=== PATIENT | female | born 1950 | race Caucasian/White ===

== ENCOUNTER 2020-02-28 23:00 | Emergency (ER) | payer OTHER ==
[2020-02-28 23:35] LABS: BASOPHILS % (AUTO) 0.5 % (0.0-5.0); EOSINOPHILS % (AUTO) 0.4 % (0.0-8.0); LYMPHOCYTES % (AUTO) 18.4 % (21.0-51.0); MEAN CORPUSCULAR HEMOGLOBIN 29.8 pg (27.0-33.0); MEAN CORPUSCULAR HGB CONC 33.3 g/dL (32.0-36.0); MEAN CORPUSCULAR VOLUME 89.4 fL (79-99); NEUTROPHILS % (AUTO) 74.3 % (40.0-77.0); PLATELET COUNT (AUTO) 253 K/uL (130-400); RED CELL DISTRIBUTION WIDTH 12.2 % (11.0-15.5); WHITE BLOOD COUNT (AUTO) 10.9 K/uL (4.8-10.8)
[2020-02-28 23:51] LABS: CREATININE 1.1 mg/dL (0.5-1.5); POTASSIUM 3.7 mmol/L (3.5-5.1)
[2020-02-28 23:54] LABS: APPEARANCE,URINE Cloudy (CLEAR); BILIRUBIN,URINE Negative (NEGATIVE); COLOR,URINE Yellow (YELLOW); GLUCOSE, URINE (UA) Negative (NEGATIVE); KETONES,URINE Negative (NEGATIVE); LEUKOCYTE ESTERASE ,URINE Large (NEGATIVE); NITRATE,URINE Negative (NEGATIVE); OCCULT BLOOD,URINE Small (NEGATIVE); PH,URINE 5.5 (5.0-8.0); PROTEIN,URINE Negative (NEGATIVE); UROBILINOGEN,URINE 0.2 mg/dL (0.2-1.0)
[2020-02-28 23:55] LABS: ALBUMIN 3.8 g/dL (3.5-5.0); BILIRUBIN,TOTAL 0.4 mg/dL (0.2-1.0); TOTAL PROTEIN, SERUM 7.8 g/dL (6.0-8.3)
[2020-02-29 00:06] LABS: B-TYPE NATRIURETIC PEPTIDE 122 pg/mL (0-100)
[2020-02-29 00:16] LABS: WBC,URINE 51-100 /HPF (0-1)
[2020-02-29 00:17] LABS: BACTERIA,URINE Moderate /HPF (None Seen); SQUAMOUS EPITHELIAL CELL,UR Moderate /HPF (0-2)
[2020-02-29] MEDS ORDERED: CEPHALEXIN 500 MG CAPSULE ONE (02:44)
== END 2020-02-29 02:55 | disposition home or self-care (01) ==
LOC: EDH 23:00
DX: I10 Essential (primary) hypertension (principal); N39.0 Urinary tract infection, site not specified; E11.65 Type 2 diabetes mellitus with hyperglycemia; R00.2 Palpitations; Z90.49 Acquired absence of other specified parts of digestive tract; Z90.710 Acquired absence of both cervix and uterus; Z88.6 Allergy status to analgesic agent
CPT/HCPCS: 36415; 71045; 80053; 81001; 82550; 83880; 84484; 85025; 87077; 87088; 87186; 93005

== ENCOUNTER → 2021-06-01 | Outpatient (CLI) | payer OTHER | END | disposition home or self-care (01) | LOC: RAH 10:55 | PROVIDERS: ATTEND Family Medicine | DX: Z12.31 Encounter for screening mammogram for malignant neoplasm of breast (principal); Z00.01 Encounter for general adult medical examination with abnormal findings | CPT/HCPCS: 77067 ==

== ENCOUNTER 2022-02-14 20:40 | Emergency (ER) | payer OTHER ==
[~2022-02-14] VITALS: Ht 152.4 cm; Wt 102.1 kg
[2022-02-14 20:41] VITALS: BP 133/65
[2022-02-14] MEDS ORDERED: LIDOCAINE HCL 2% VISCOUS 15 ML UDCUP PO ONE (21:00)
[2022-02-14] MEDS ORDERED: FAMOTIDINE 20MG VIAL IV ONE (21:00)
[2022-02-14] MEDS ORDERED: DICYCLOMINE HCL 10 MG/5 ML ML PO ONE (21:00)
[2022-02-14] MEDS ORDERED: ONDANSETRON 4MG INJ IVP ONE (21:00)
[2022-02-14] MEDS ORDERED: MAG/ALUM/SIMETH 30 ML UDCUP PO ONE (21:00)
[2022-02-14 21:20] LABS: BASOPHILS % (AUTO) 0.3 % (0.0-5.0); EOSINOPHILS % (AUTO) 0.3 % (0.0-8.0); HEMATOCRIT 41.2 % (36-48); LYMPHOCYTES % (AUTO) 8.7 % (21.0-51.0); MEAN CORPUSCULAR HEMOGLOBIN 29.2 pg (27.0-33.0); MEAN CORPUSCULAR VOLUME 91.2 fL (79-99); MONOCYTES % (AUTO) 4.9 % (3.0-13.0); NEUTROPHILS % (AUTO) 85.6 % (40.0-77.0); PLATELET COUNT (AUTO) 234 K/uL (130-400); RED BLOOD CELL COUNT(AUTO) 4.52 MIL/uL (4.00-5.50); RED CELL DISTRIBUTION WIDTH 12.6 % (11.0-15.5); WHITE BLOOD COUNT (AUTO) 12.9 K/uL (4.8-10.8)
[2022-02-14] MEDS ORDERED: 0.9%NACL 1000ML 1,000 ML IV ONE (21:48)
[2022-02-14 21:51] LABS: ALBUMIN 3.4 g/dL (3.5-5.0); BILIRUBIN,TOTAL 0.3 mg/dL (0.2-1.0); TOTAL PROTEIN, SERUM 7.5 g/dL (6.0-8.3)
[2022-02-14 22:10] LABS: APPEARANCE,URINE Cloudy (CLEAR); BILIRUBIN,URINE Negative (NEGATIVE); COLOR,URINE Yellow (YELLOW); GLUCOSE, URINE (UA) Negative (NEGATIVE); KETONES,URINE Trace mg/dL (NEGATIVE); LEUKOCYTE ESTERASE ,URINE Large (NEGATIVE); NITRATE,URINE Positive (NEGATIVE); OCCULT BLOOD,URINE Small (NEGATIVE); PH,URINE 5.5 (5.0-8.0); PROTEIN,URINE Trace mg/dL (NEGATIVE); UROBILINOGEN,URINE 0.2 mg/dL (0.2-1.0)
[2022-02-14] MEDS ORDERED: PHEN-847 PO (22:24)
[2022-02-14] MEDS ORDERED: CEPH500B PO (22:24)
[2022-02-14] MEDS ORDERED: CEFTRIAXONE 1G VIAL IVP ONE (22:30)
[2022-02-14] MEDS ORDERED: PHENAZOPYRIDINE HCL 200 MG TABLET PO ONE (22:30)
[2022-02-14 22:43] LABS: BACTERIA,URINE Moderate /HPF (None Seen); WBC,URINE 26-50 /HPF (0-1)
== END 2022-02-14 23:12 | disposition home or self-care (01) ==
LOC: EDH 20:40
DX: N39.0 Urinary tract infection, site not specified (principal); E11.9 Type 2 diabetes mellitus without complications; E66.9 Obesity, unspecified; Z68.41 Body mass index [BMI] 40.0-44.9, adult; I10 Essential (primary) hypertension; Z88.5 Allergy status to narcotic agent; Z79.899 Other long term (current) drug therapy; Z90.49 Acquired absence of other specified parts of digestive tract; Z98.890 Other specified postprocedural states
CPT/HCPCS: 36415; 71045; 80053; 81001; 83690; 84484; 85025; 87077; 87088; 87186; 96361; 96374; 96375; 99284; J0696; J2405; J3490; J7030

== ENCOUNTER 2022-02-16 02:56 | Inpatient (IN) | payer MEDICARE ==
[~2022-02-16] VITALS: Ht 152.4 cm; Wt 103.5 kg
[~2022-02-16 02:56] MED LIST: CEPH500B PO; PHEN-847 PO
[2022-02-16] MEDS ORDERED: ONDANSETRON 4MG INJ ONE (03:54)
[2022-02-16] MEDS ORDERED: ONDANSETRON 4MG INJ IVP ONE (04:00)
[2022-02-16] MEDS ORDERED: 0.9%NACL 1000ML 1,000 ML IV ONE ×2 (04:00→05:30)
[2022-02-16 04:18] LABS: BASOPHILS % (AUTO) 0.4 % (0.0-5.0); EOSINOPHILS % (AUTO) 0.1 % (0.0-8.0); HEMATOCRIT 44.3 % (36-48); LYMPHOCYTES % (AUTO) 10.9 % (21.0-51.0); MEAN CORPUSCULAR HEMOGLOBIN 29.8 pg (27.0-33.0); MEAN CORPUSCULAR HGB CONC 32.3 g/dL (32.0-36.0); MEAN CORPUSCULAR VOLUME 92.3 fL (79-99); MONOCYTES % (AUTO) 3.6 % (3.0-13.0); NEUTROPHILS % (AUTO) 84.6 % (40.0-77.0); PLATELET COUNT (AUTO) 285 K/uL (130-400); RED CELL DISTRIBUTION WIDTH 12.7 % (11.0-15.5); WHITE BLOOD COUNT (AUTO) 13.5 K/uL (4.8-10.8)
[2022-02-16 04:19] LABS: POTASSIUM 4.4 mmol/L (3.5-5.1)
[2022-02-16 04:22] LABS: BILIRUBIN,URINE Small (NEGATIVE); COLOR,URINE Orange (YELLOW); GLUCOSE, URINE (UA) Negative (NEGATIVE); KETONES,URINE >=80 mg/dL (NEGATIVE); LEUKOCYTE ESTERASE ,URINE Moderate (NEGATIVE); NITRATE,URINE Positive (NEGATIVE); OCCULT BLOOD,URINE Small (NEGATIVE); PROTEIN,URINE POS 2+ mg/dL (NEGATIVE)
[2022-02-16 04:23] LABS: ALBUMIN 3.4 g/dL (3.5-5.0); BILIRUBIN,TOTAL 0.6 mg/dL (0.2-1.0); TOTAL PROTEIN, SERUM 7.6 g/dL (6.0-8.3)
[2022-02-16 04:30] LABS: APPEARANCE,URINE SLIGHTLY CLOUDY (CLEAR)
[2022-02-16] MEDS ORDERED: CEFTRIAXONE 1G VIAL IVP ONE (05:00)
[2022-02-16 05:11] LABS: BACTERIA,URINE Few /HPF (None Seen); WBC,URINE 51-100 /HPF (0-1)
[2022-02-16 05:12] LABS: MUCUS,URINE Few LPF (None Seen)
[2022-02-16] MEDS ORDERED: ACETAMINOPHEN 500 MG TABLET PO PRN (08:00)
[2022-02-16] MEDS: INSULIN HUMULIN R 100 UNIT/ML 3ML SQ SCH ×3 (08:00→20:00)
[2022-02-16] MEDS ORDERED: MORPHINE 2 MG SYG IVP PRN (08:00)
[2022-02-16] MEDS ORDERED: ONDANSETRON 4MG INJ IVP PRN (08:00)
[2022-02-16] MEDS ORDERED: THIAMINE HCL 100 MG/ML 2ML VIAL IVP SCH (08:00)
[2022-02-16] MEDS ORDERED: AMLO2.5T4 PO (08:09)
[2022-02-16] MEDS ORDERED: METO-409 PO (08:09)
[2022-02-16] MEDS ORDERED: LISI30TA4 PO (08:09)
[2022-02-16] MEDS: LACTATED RINGERS 1000ML 1,000 ML IV SCH ×2 (08:43→21:24)
[2022-02-16] MEDS: ZOSYN 3.375GM +NS 50ML IV SCH ×3 (08:43→23:54)
[2022-02-16] MEDS: PANTOPRAZOLE 40 MG/VIAL IVP SCH (08:43)
[2022-02-16 09:56] LABS: HEMOGLOBIN A1C 7.3 % (4.0-6.0)
[2022-02-16 10:09] LABS: CRP QUANTITATIVE 6.1 mg/L (0.00-9.0); THYROID STIMULATING HORMONE 0.31 uIU/mL (0.36-3.74)
[2022-02-16] MEDS: AMLODIPINE 2.5 MG TAB PO SCH ×2 (10:15→21:24)
[2022-02-16] MEDS ORDERED: METF-890 PO (14:09)
[2022-02-16 15:00] VITALS: BP 127/68
[2022-02-16] MEDS ORDERED: 0.9%NACL 50ML 50 ML IV ONE ×2 (15:09→23:50)
[2022-02-16] MEDS ORDERED: LISINOPRIL 10 MG TABLET PO SCH (15:30)
[2022-02-16 19:15] VITALS: BP 145/66
[2022-02-16] MEDS: METOPROLOL SUCCINATE 50 MG TAB.SR.24H PO SCH (20:24)
[2022-02-16] MEDS: ENOXAPARIN SODIUM 40 MG/0.4 ML SYRINGE SQ SCH (20:26)
[2022-02-17 00:06] VITALS: BP 146/64
[2022-02-17] MEDS: INSULIN HUMULIN R 100 UNIT/ML 3ML SQ SCH ×5 (02:00→20:25)
[2022-02-17 03:15] VITALS: BP 148/65
[2022-02-17 06:14] LABS: BASOPHILS % (AUTO) 0.7 % (0.0-5.0); EOSINOPHILS % (AUTO) 0.9 % (0.0-8.0); LYMPHOCYTES % (AUTO) 26.6 % (21.0-51.0); MEAN CORPUSCULAR HEMOGLOBIN 28.9 pg (27.0-33.0); MEAN CORPUSCULAR HGB CONC 30.8 g/dL (32.0-36.0); MEAN CORPUSCULAR VOLUME 93.7 fL (79-99); MONOCYTES % (AUTO) 7.1 % (3.0-13.0); NEUTROPHILS % (AUTO) 64.2 % (40.0-77.0); PLATELET COUNT (AUTO) 208 K/uL (130-400); RED BLOOD CELL COUNT(AUTO) 3.95 MIL/uL (4.00-5.50); RED CELL DISTRIBUTION WIDTH 12.5 % (11.0-15.5); WHITE BLOOD COUNT (AUTO) 8.8 K/uL (4.8-10.8)
[2022-02-17 06:39] LABS: ALANINE AMINOTRANSFERASE 17 U/L (12-78); ALBUMIN 2.7 g/dL (3.5-5.0); ASPARTATE AMINOTRANSFERASE 22 U/L (10-37); BILIRUBIN,TOTAL 0.5 mg/dL (0.2-1.0); CARBON DIOXIDE 28 mmol/L (21-32); CHLORIDE 104 mmol/L (101-111); CREATININE 0.9 mg/dL (0.5-1.5); GLOMERULAR FILTR. RATE CALC 65 mL/min (>60); GLUCOSE,RANDOM 114 mg/dL (70-105); POTASSIUM 3.7 mmol/L (3.5-5.1); SODIUM SERUM 140 mmol/L (136-145); TOTAL PROTEIN, SERUM 6.3 g/dL (6.0-8.3); UREA NITROGEN, BLOOD 14 mg/dL (7-18)
[2022-02-17 06:46] LABS: CRP QUANTITATIVE < 2.00 mg/L (0.00-9.0)
[2022-02-17 08:00] VITALS: BP 152/61
[2022-02-17] MEDS: ZOSYN 3.375GM +NS 50ML IV SCH ×2 (10:27→16:48)
[2022-02-17] MEDS: PANTOPRAZOLE 40 MG/VIAL IVP SCH (10:27)
[2022-02-17] MEDS: AMLODIPINE 2.5 MG TAB PO SCH ×2 (10:28→21:22)
[2022-02-17] MEDS: ENOXAPARIN SODIUM 40 MG/0.4 ML SYRINGE SQ SCH (10:28)
[2022-02-17] MEDS: LISINOPRIL 10 MG TABLET PO SCH (10:28)
[2022-02-17] MEDS: LACTATED RINGERS 1000ML 1,000 ML IV SCH (10:40)
[2022-02-17 12:49] VITALS: BP 136/68
[2022-02-17 16:30] VITALS: BP 142/66
[2022-02-17 19:06] VITALS: BP 154/65
[2022-02-17] MEDS: METOPROLOL SUCCINATE 50 MG TAB.SR.24H PO SCH (20:21)
[2022-02-17] MEDS ORDERED: 0.9%NACL 50ML 50 ML IV ONE (23:58)
[2022-02-18 00:06] VITALS: BP 145/73
[2022-02-18] MEDS: LACTATED RINGERS 1000ML 1,000 ML IV SCH (00:16)
[2022-02-18] MEDS: ZOSYN 3.375GM +NS 50ML IV SCH ×2 (00:16→09:16)
[2022-02-18 03:09] VITALS: BP 147/70
[2022-02-18 04:26] LABS: BASOPHILS % (AUTO) 0.6 % (0.0-5.0); EOSINOPHILS % (AUTO) 1.7 % (0.0-8.0); HEMATOCRIT 36.4 % (36-48); LYMPHOCYTES % (AUTO) 28.2 % (21.0-51.0); MEAN CORPUSCULAR HEMOGLOBIN 29.3 pg (27.0-33.0); MEAN CORPUSCULAR HGB CONC 31.6 g/dL (32.0-36.0); MEAN CORPUSCULAR VOLUME 92.6 fL (79-99); MONOCYTES % (AUTO) 8.2 % (3.0-13.0); NEUTROPHILS % (AUTO) 60.9 % (40.0-77.0); PLATELET COUNT (AUTO) 193 K/uL (130-400); RED BLOOD CELL COUNT(AUTO) 3.93 MIL/uL (4.00-5.50); RED CELL DISTRIBUTION WIDTH 12.3 % (11.0-15.5); WHITE BLOOD COUNT (AUTO) 7.1 K/uL (4.8-10.8)
[2022-02-18 04:45] LABS: ALBUMIN 2.8 g/dL (3.5-5.0); BILIRUBIN,TOTAL 0.5 mg/dL (0.2-1.0); CREATININE 0.9 mg/dL (0.5-1.5); POTASSIUM 3.5 mmol/L (3.5-5.1); TOTAL PROTEIN, SERUM 6.4 g/dL (6.0-8.3)
[2022-02-18] MEDS: INSULIN HUMULIN R 100 UNIT/ML 3ML SQ SCH ×2 (06:33→11:03)
[2022-02-18 07:00] VITALS: BP 179/76
[2022-02-18] MEDS ORDERED: CEFU500T67 PO (09:11)
[2022-02-18] MEDS: PANTOPRAZOLE 40 MG/VIAL IVP SCH (09:16)
[2022-02-18] MEDS: LISINOPRIL 10 MG TABLET PO SCH (09:17)
[2022-02-18] MEDS: AMLODIPINE 2.5 MG TAB PO SCH (09:17)
[2022-02-18] MEDS: ENOXAPARIN SODIUM 40 MG/0.4 ML SYRINGE SQ SCH (09:17)
[2022-02-18 11:00] VITALS: BP 154/78
== END 2022-02-18 13:50 | disposition home or self-care (01) | DRG 690 ==
LOC: EDH 02:56 → EDHIP 07:54 → 2AH 14:36
PROVIDERS: ADMIT Internal Medicine; ATTEND Internal Medicine
DX: N39.0 Urinary tract infection, site not specified (principal); K57.92 Diverticulitis of intestine, part unspecified, without perforation or abscess without bleeding; Z68.41 Body mass index [BMI] 40.0-44.9, adult; E86.1 Hypovolemia; N20.0 Calculus of kidney; E86.0 Dehydration; I10 Essential (primary) hypertension; E11.9 Type 2 diabetes mellitus without complications; D72.828 Other elevated white blood cell count; E66.9 Obesity, unspecified; Z20.822 Contact with and (suspected) exposure to COVID-19; Z90.49 Acquired absence of other specified parts of digestive tract; Z96.643 Presence of artificial hip joint, bilateral; R54 Age-related physical debility; M19.90 Unspecified osteoarthritis, unspecified site; Z88.8 Allergy status to other drugs, medicaments and biological substances
CPT/HCPCS: 36415; 74176; 80053; 81001; 82948; 83036; 83605; 83690; 83735; 84145; 84439; 84443; 84481; 85025; 85651; 86140; 87040; 87088; 87635; 87804; 93005; C9113; G0378; J0696; J1650; J2405; J2543; J3411; J7120

== ENCOUNTER → 2022-08-30 | Outpatient (CLI) | payer OTHER, MEDICARE ==
[~2022-08-30] MED LIST changes: +AMLO2.5T4 PO; +CEFU500T67 PO; -CEPH500B PO; +LISI30TA4 PO; +METF-890 PO; +METO-409 PO
== END | disposition home or self-care (01) ==
LOC: RAH 08:57
PROVIDERS: ATTEND Podiatrist
DX: S90.32XA Contusion of left foot, initial encounter (principal); X58.XXXA Exposure to other specified factors, initial encounter; Y93.89 Activity, other specified; Y92.89 Other specified places as the place of occurrence of the external cause; Y99.8 Other external cause status
CPT/HCPCS: 73630

== ENCOUNTER → 2022-09-16 | Outpatient (CLI) | payer OTHER, MEDICARE | END | disposition home or self-care (01) | LOC: RAH 09:13 | PROVIDERS: ATTEND Family Medicine | DX: Z12.31 Encounter for screening mammogram for malignant neoplasm of breast (principal) | CPT/HCPCS: 77067 ==

== ENCOUNTER 2023-02-25 17:07 | Emergency (ER) | payer OTHER, MEDICARE ==
[~2023-02-25] VITALS: Ht 152.4 cm; Wt 97.5 kg
[2023-02-25 18:21] LABS: BASOPHILS % (AUTO) 0.3 % (0.0-5.0); EOSINOPHILS % (AUTO) 0.5 % (0.0-8.0); HEMATOCRIT 40.5 % (36-48); LYMPHOCYTES % (AUTO) 16.7 % (21.0-51.0); MEAN CORPUSCULAR HEMOGLOBIN 29.3 pg (27.0-33.0); MEAN CORPUSCULAR HGB CONC 32.6 g/dL (32.0-36.0); MONOCYTES % (AUTO) 6.8 % (3.0-13.0); NEUTROPHILS % (AUTO) 75.3 % (40.0-77.0); PLATELET COUNT (AUTO) 237 K/uL (130-400); RED CELL DISTRIBUTION WIDTH 12.2 % (11.0-15.5); WHITE BLOOD COUNT (AUTO) 12.1 K/uL (4.8-10.8)
[2023-02-25 18:38] LABS: ALBUMIN 3.7 g/dL (3.5-5.0); TOTAL PROTEIN, SERUM 7.6 g/dL (6.0-8.3)
[2023-02-25 18:38] LABS: APPEARANCE,URINE CLEAR (CLEAR); BILIRUBIN,URINE NEGATIVE (NEGATIVE); COLOR,URINE COLORLESS (YELLOW); GLUCOSE, URINE (UA) NEGATIVE (NEGATIVE); KETONES,URINE NEGATIVE (NEGATIVE); LEUKOCYTE ESTERASE ,URINE 250 Leu/uL (NEGATIVE); NITRATE,URINE NEGATIVE (NEGATIVE); OCCULT BLOOD,URINE NEGATIVE (NEGATIVE); PH,URINE 5.5 (5.0-8.0); PROTEIN,URINE NEGATIVE (NEGATIVE); UROBILINOGEN,URINE 0.2 mg/dL (0.2-1.0)
[2023-02-25 18:55] LABS: BACTERIA,URINE FEW /HPF (None Seen); RBC,URINE 0-1 /HPF (0-1); SQUAMOUS EPITHELIAL CELL,UR RARE /HPF (0-2)
[2023-02-25 19:20] VITALS: BP 145/64
[2023-02-25] MEDS ORDERED: ONDA4TAB10 PO (19:23)
[2023-02-25] MEDS ORDERED: CEFD300C3 PO (19:23)
[2023-02-25] MEDS ORDERED: CEFTRIAXONE 1G VIAL IVPB ONE (19:30)
== END 2023-02-25 19:58 | disposition home or self-care (01) ==
LOC: EDH 17:07
DX: N39.0 Urinary tract infection, site not specified (principal); I10 Essential (primary) hypertension; E11.9 Type 2 diabetes mellitus without complications; E66.9 Obesity, unspecified; Z79.84 Long term (current) use of oral hypoglycemic drugs; Z79.899 Other long term (current) drug therapy; Z90.49 Acquired absence of other specified parts of digestive tract; Z98.890 Other specified postprocedural states; Z88.5 Allergy status to narcotic agent
CPT/HCPCS: 99284; 96374; 80053; 85025; 87088; 81001; 36415; J0696

== ENCOUNTER 2023-05-07 13:36 | Emergency (ER) | payer OTHER, MEDICARE ==
[~2023-05-07] VITALS: Ht 152.4 cm; Wt 99.8 kg
[~2023-05-07 13:36] MED LIST changes: +CEFD300C3 PO; +ONDA4TAB10 PO
[2023-05-07 13:57] LABS: BASOPHILS % (AUTO) 0.4 % (0.0-5.0); EOSINOPHILS % (AUTO) 0.4 % (0.0-8.0); HEMATOCRIT 43.9 % (36-48); LYMPHOCYTES % (AUTO) 22.2 % (21.0-51.0); MEAN CORPUSCULAR HEMOGLOBIN 29.9 pg (27.0-33.0); MEAN CORPUSCULAR HGB CONC 32.6 g/dL (32.0-36.0); MEAN CORPUSCULAR VOLUME 91.8 fL (79-99); MONOCYTES % (AUTO) 5.9 % (3.0-13.0); NEUTROPHILS % (AUTO) 70.8 % (40.0-77.0); PLATELET COUNT (AUTO) 259 K/uL (130-400); RED BLOOD CELL COUNT(AUTO) 4.78 MIL/uL (4.00-5.50); RED CELL DISTRIBUTION WIDTH 12.6 % (11.0-15.5); WHITE BLOOD COUNT (AUTO) 10.4 K/uL (4.8-10.8)
[2023-05-07 13:57] LABS: APPEARANCE,URINE CLEAR (CLEAR); BILIRUBIN,URINE NEGATIVE (NEGATIVE); COLOR,URINE COLORLESS (YELLOW); GLUCOSE, URINE (UA) NEGATIVE (NEGATIVE); KETONES,URINE NEGATIVE (NEGATIVE); LEUKOCYTE ESTERASE ,URINE 250 Leu/uL (NEGATIVE); NITRATE,URINE NEGATIVE (NEGATIVE); OCCULT BLOOD,URINE NEGATIVE (NEGATIVE); PH,URINE 5.5 (5.0-8.0); PROTEIN,URINE NEGATIVE (NEGATIVE); UROBILINOGEN,URINE 0.2 mg/dL (0.2-1.0)
[2023-05-07] MEDS ORDERED: ONDANSETRON 4MG INJ IVP ONE (14:00)
[2023-05-07 14:06] LABS: CREATININE 1.1 mg/dL (0.5-1.5); POTASSIUM 4.6 mmol/L (3.5-5.1)
[2023-05-07 14:11] LABS: ALBUMIN 3.7 g/dL (3.5-5.0); TOTAL PROTEIN, SERUM 7.9 g/dL (6.0-8.3)
[2023-05-07 14:35] LABS: BACTERIA,URINE RARE /HPF (None Seen); MUCUS,URINE RARE LPF (None Seen); RBC,URINE 0-1 /HPF (0-1); SQUAMOUS EPITHELIAL CELL,UR RARE /HPF (0-2)
[2023-05-07] MEDS ORDERED: 0.9% NACL 500ML IV.SOLN 500 ML IV ONE (15:00)
[2023-05-07] MEDS ORDERED: CEFTRIAXONE 1G VIAL IVPB ONE (15:00)
[2023-05-07] MEDS ORDERED: KETOROLAC 15MG/ML VIAL (15MG/ML) IV ONE (15:00)
[2023-05-07 15:24] VITALS: BP 144/64; PULSE 72; RESP 16; O2SAT 98
[2023-05-07] MEDS ORDERED: NITR100C PO (16:40)
[2023-05-07] MEDS ORDERED: ONDA4TAB10 PO (16:40)
== END 2023-05-07 17:08 | disposition home or self-care (01) ==
LOC: EDH 13:36
DX: N39.0 Urinary tract infection, site not specified (principal); N20.0 Calculus of kidney; E11.9 Type 2 diabetes mellitus without complications; E78.00 Pure hypercholesterolemia, unspecified; I10 Essential (primary) hypertension; Z79.899 Other long term (current) drug therapy; Z88.5 Allergy status to narcotic agent; Z90.49 Acquired absence of other specified parts of digestive tract
CPT/HCPCS: 99285; 74176; 96365; 96375; 96366; 80053; 85025; 87088; 83605; 81001; 36415; J7040; J0696; J2405; J1885

== ENCOUNTER 2023-08-08 07:30 | Day surgery (SDC) | payer OTHER, MEDICARE ==
[2023-08-06 12:42] LABS: BASOPHILS # (AUTO) 0.05 K/uL (0.00-0.20); BASOPHILS % (AUTO) 0.5 % (0.0-5.0); EOSINOPHILS # (AUTO) 0.14 K/uL (0.00-0.70); EOSINOPHILS % (AUTO) 1.5 % (0.0-8.0); HEMATOCRIT 42.2 % (36-48); IMMATURE GRANULOCYTE ABSOLUTE 0.03 K/uL (0-1); MEAN CORPUSCULAR HEMOGLOBIN 30.4 pg (27.0-33.0); MEAN CORPUSCULAR HGB CONC 32.7 g/dL (32.0-36.0); MONOCYTES # (AUTO) 0.7 K/uL (0.1-1.0); MONOCYTES % (AUTO) 7.4 % (3.0-13.0); NEUTROPHILS # (AUTO) 5.4 K/uL (1.8-7.7); NEUTROPHILS % (AUTO) 58.3 % (40.0-77.0); PLATELET COUNT (AUTO) 284 K/uL (130-400); RED BLOOD CELL COUNT(AUTO) 4.54 MIL/uL (4.00-5.50); RED CELL DISTRIBUTION WIDTH 12.4 % (11.0-15.5); WHITE BLOOD COUNT (AUTO) 9.3 K/uL (4.8-10.8)
[2023-08-06 12:55] VITALS: BP 175/74; PULSE 67; RESP 18
[~2023-08-08] VITALS: Ht 152.4 cm; Wt 101.8 kg
[2023-08-08] VITALS (18 sets, daily range): BP systolic 146–197; BP diastolic 67–85; PULSE 53–66; RESP 14–22
[~2023-08-08 07:30] MED LIST changes: -CEFD300C3 PO; -CEFU500T67 PO; +HYDR12.54 PO; +MULT-1367 PO; -ONDA4TAB10 PO; -PHEN-847 PO; +probiotic PO; +vitamin b12 PO
[2023-08-08] MEDS ORDERED: 0.9%NACL 1000ML 1,000 ML IV ONE (07:55)
[2023-08-08] MEDS ORDERED: CEFTRIAXONE 1G VIAL ONE (07:55)
[2023-08-08] MEDS ORDERED: IOHEXOL-350 50ML VIAL IV ONE (10:15)
[2023-08-08] MEDS ORDERED: PROPOFOL 10 MG/ML 20ML VIAL IV ONE (10:30)
[2023-08-08] MEDS ORDERED: ROCURONIUM 10MG/1ML SYR 10 MG/ML ML ONE (10:30)
[2023-08-08] MEDS ORDERED: MIDAZOLAM HCL 1 MG/ML 2ML VIAL ONE (10:30)
[2023-08-08] MEDS ORDERED: LIDOCAINE PF 100MG/5ML (2%) SYRINGE 5ML ONE (10:30)
[2023-08-08] MEDS ORDERED: FENTANYL CITRATE PF 50 MCG/1 ML 2ML VIAL ONE (10:33)
[2023-08-08] MEDS ORDERED: CEFTRIAXONE 1G VIAL IVPB ONE (10:46)
[2023-08-08] MEDS ORDERED: EPHEDRINE SULFATE 50 MG/ML AMPULE ONE (10:48)
[2023-08-08] MEDS ORDERED: PHENAZOPYRIDINE HCL 200 MG TABLET ONE (12:53)
== END 2023-08-08 13:45 | disposition home or self-care (01) ==
LOC: DAH 07:30
PROVIDERS: ATTEND Urology
DX: N20.0 Calculus of kidney (principal); N30.20 Other chronic cystitis without hematuria; I10 Essential (primary) hypertension; E78.5 Hyperlipidemia, unspecified; K21.9 Gastro-esophageal reflux disease without esophagitis; E11.9 Type 2 diabetes mellitus without complications; E66.01 Morbid (severe) obesity due to excess calories; Z79.01 Long term (current) use of anticoagulants; Z79.899 Other long term (current) drug therapy; Z98.891 History of uterine scar from previous surgery; Z98.890 Other specified postprocedural states; Z88.6 Allergy status to analgesic agent; Z90.710 Acquired absence of both cervix and uterus; Z90.722 Acquired absence of ovaries, bilateral
CPT/HCPCS: 80048; 85025; 36415; 93005; 50590; 52332; 82948 ×2; 74420; A6260; C2617; A4663; J7120; A4344; C1769; C1758; J3010; J7030; J2001; J3490; J0696 ×2; J2250; J2704; Q9967; A4358; A4215; A4223; A4222; A4221; A4600; A4510

== ENCOUNTER → 2024-10-27 | Outpatient (CLI) | payer OTHER, MEDICARE ==
[~2024-10-27] MED LIST changes: +METF-1150 PO; -METF-890 PO; -MULT-1367 PO
--- NOTE | 2024-10-27 12:16 | HMCIMG ---
SCREENING MAMMOGRAM REASON: Annual Exam COMPARISON: 09/16/2022 TECHNIQUE: CC and MLO views of the bilateral breasts were performed.CAD was performed as well. FINDINGS: Parenchymal density: There are scattered areas of fibroglandular density. There are no focal mass lesions. There are no pathologic appearing calcifications. There is no evidence of architectural distortion or skin thickening. IMPRESSION: Normal screening mammogram The patient was entered into a reminder system with a target due date for their next mammogram. BI-RADS CATEGORY 1: NEGATIVE Recommend monthly self breast exam as well as annual clinical examination. A negative x-ray should not delay biopsy if a dominant or clinically suspicious mass is present, since 8-10% of cancers are not identified by mammography. Dense breasts particularly, may obscure an underlying neoplasm. Some of these may be detected clinically and therefore, clinical examination is an essential part of breast evaluation.
== END | disposition home or self-care (01) ==
LOC: RAH 10:57
PROVIDERS: ATTEND Family Medicine
DX: Z12.31 Encounter for screening mammogram for malignant neoplasm of breast (principal); R92.323 Mammographic fibroglandular density, bilateral breasts
CPT/HCPCS: 77067